=== PATIENT | female | born 1945 | race Caucasian/White ===

== ENCOUNTER 2019-09-25 21:06 | Emergency (ER) | payer OTHER ==
[2019-09-25 21:13] VITALS: BP 111/61; PULSE 54; TEMP 97.4; BMI 21.7
--- NOTE | 2019-09-25 21:20 | PDOC ---
History of Present Illness - General Chief Complaint: Lightheaded Stated Complaint: DIZZINESS Time Seen by Provider: 09/25/19 21:09 - History of Present Illness Initial Comments: 09/25/19 21:48 This 73-year-old woman with a history of asthma and osteoporosis brought in by ambulance with a few hour history of vertigo and nausea/vomiting. Patient states that she was washing her dishes when she had sudden onset of room spinning sensation. Symptom was worse with movement of her head. Denies headache She states that she was not able to keep her balance unless holding onto something; she subsequently had several episodes of nausea and vomiting (no blood/coffee grounds). She has no recent history of head trauma. She has not fallen since the onset of the vertigo. No recent fever/chills. She denies shortness of breath/cough. No other focal neurologic symptoms noted. She states that she had mild episodes of vertigo several years ago, attributed to "inner ear" problem. She was given some exercises to perform and symptoms resolved. Only other recent medical issue was asthma exacerbation earlier this month which improved significantly after course of corticosteroids. She currently does not have wheezing. Medications as noted below Non-smoker/no daily alcohol or recreational drug use No known allergies PMD: Dr Dominguez Past History - Past Medical History Allergies/Adverse Reactions: Allergies Allergy/AdvReac Type Severity Reaction Status Date / Time No Known Allergies Allergy Verified 08/24/11 13:54 Home Medications: Ambulatory Orders Benzalkonium Chloride [Tincture Merthiolate] 1 ml .ROUTE DAILY 07/19/13 Calcipotriene/Betamethasone [Taclonex Scalp Suspension] 60 gm TP DAILY 07/19/13 Calcium Carbonate/Vitamin D3 [Calcium 600-Vit D3 200 Tablet] 1 mg PO DAILY 07/19/13 Cholecalciferol (Vitamin D3) [Vitamin D] 1,000 unit PO DAILY 07/19/13 Docosahexanoic Acid/Epa [Fish Oil Softgel] 1 each PO DAILY 07/19/13 Ibandronate Sodium [Boniva (Monthly)] 150 mg PO Q30D 07/19/13 Multivitamin [Multivitamins] 1 each PO DAILY 07/19/13 Meclizine HCl [Antivert -] 25 mg PO TID PRN #12 tablet 09/25/19 Montelukast Na [Singulair -] 10 mg PO HS 09/25/19 Ondansetron [Zofran *Odt*] 4 mg SL BID PRN #6 od.tablet 09/25/19 Tiotropium Dandridge [Spiriva] 1 inh PO DAILY 09/25/19 predniSONE [Deltasone -] 10 mg PO DAILY 09/25/19 Anemia: No Asthma: Yes (occasional) Cancer: No Cardiac Disorders: Yes (mvp) CVA: No COPD: No CHF: No Dementia: No Diabetes: No GI Disorders: No Disorders: No HTN: No Hypercholesterolemia: No Liver Disease: No Seizures: No Thyroid Disease: No Other medical history: OSTEOPOROSIS - Surgical History Abdominal Surgery: No Appendectomy: No Cardiac Surgery: No Cholecystectomy: No Lung Surgery: No Neurologic Surgery: No Orthopedic Surgery: No - Psycho Social/Smoking Cessation Hx Smoking Status: No Smoking History: Never smoked Have you smoked in the past 12 months: No Number of Cigarettes Smoked Daily: 0 Hx Alcohol Use: No Drug/Substance Use Hx: No Substance Use Type: None Review of Systems - Review of Systems Able to Perform ROS?: Yes Comments:: 12 point review of systems is negative except for what is noted in the history of present illness *Physical Exam - Vital Signs Last Vital Signs Temp Pulse Resp BP Pulse Ox 97.4 F L 54 L 18 111/61 97 09/25/19 21:10 09/25/19 21:10 09/25/19 21:10 09/25/19 21:10 09/25/19 21:10 - Physical Exam GENERAL: Adult female, alert and oriented x3, keeping eyes closed (to prevent vertigo) mild distress secondary to vertigo/nausea HEAD: Normal with no signs of trauma. EYES: pupils 2 mm equal and reactive, rightward nystagmus espec on R lateral gaze, sclera anicteric, conjunctiva clear. ENT: Ears normal, nares patent, oropharynx clear without exudates. Dry mucous membranes. NECK: Normal range of motion, supple without lymphadenopathy, JVD, or masses. No bruits/no masses LUNGS: Breath sounds equal, clear to auscultation bilaterally. No wheezes, and no crackles. HEART:Regular rate and rhythm, normal S1 and S2 without murmur, rub or gallop. ABDOMEN:.normal bowel sounds No guarding,tenderness or rebound.No masses No distention. EXTREMITIES: Normal range of motion, no edema. No clubbing or cyanosis. No cici thema, or tenderness. NEUROLOGICAL: Cranial nerves II through XII grossly intact.R nystagmus as above. Normal speech.Moving all extremities equally. ED Treatment Course - LABORATORY CBC & Chemistry Diagram: 09/25/19 21:36 09/25/19 21:23 Medical Decision Making - Medical Decision Making IV access was obtained and CBC/chemistry profile/troponin levels were sent. 1 L of normal saline IV started Twelve-lead electrocardiogram was obtained and preliminary interpretation by me: Sinus bradycardia 55/minute; axis, intervals and waveforms were normal without evidence of acute ST or T wave abnormalities. No evidence of acute cardiac arrhythmia noted. No previous tracing was available for comparison. Patient was given Zofran 4 mg IV Noncontrast head CT was obtained: Interpretation by Dr. Cisneros of radiology staffsome evidence of mild sphenoidal sinusitis but no acute intracranial abnormality seen. Physical exam most consistent with peripheral vertigo in light of the unidirectional nystagmus and lack of vertical skew. Also, patient reported significant increase in her vertigo with rotational movement of her head. Patient reported significant relief in her nausea and mild relief in her vertigo after Zofran 4 mg IV and approximately 500 mL of normal saline IV Laboratory evaluation notable for potassium level 2.9 (unclear etiology since patient is on no medication which could cause hypokalemia and states that she has never had low potassium levels in the past); there was also some evidence of mild prerenal azotemia (BUN 19 with creatinine of 0.6). Patient received 10 meQ of KCl IV and 25 mg meclizine by mouth Additional KCl (K. Dur) 20 meq given orally. Patient reported marked resolution in her vertigo after meclizine and remainder of the liter of normal saline IV Patient asked for COVID-19 testing. Although the patient did not have typical s ymptoms of COVID-19 infection, viral origin of her symptoms are possibility. Since patient states that some of her family members have been visiting her in her home (including a daughter who is in the third trimester ), her infectious status would be valuable information. Therefore, swab was taken from the right nostril. It was recommended to the patient that she maintain strict self quarantine until the test results are known. Then, of course if she is positive for COVID-19, additional 7 days of self quarantine would be necessary. The patient understands and agrees. Meanwhile, patient should rest and drink plenty of water. Prescription for meclizine 25 mg up to 3 times a day for vertigo and Zofran ODT 4 mg up to twice a day as needed for nausea sent to her pharmacy. She should call her PMD, Dr. Dominguez on September 26 to discuss today's ER visit and to arrange for follow-up. If she has any recurrent persistent vertigo or vomiting, she should return to the ER. Discharge - Discharge Information Problems reviewed: Yes Clinical Impression/Diagnosis: Peripheral positional vertigo Qualifiers: Laterality: unspecified laterality Qualified Code(s): H81.399 - Other peripheral vertigo, unspecified ear Condition: Stable Disposition: HOME - Additional Discharge Information Prescriptions: Meclizine HCl [Antivert -] 25 mg PO TID PRN #12 tablet PRN Reason: Vertigo Ondansetron [Zofran *Odt*] 4 mg SL BID PRN #6 od.tablet PRN Reason: Nausea - Follow up/Referral Referrals: Matthew Dominguez MD [Staff Physician] - 2 Days - Patient Discharge Instructions Patient Printed Discharge Instructions: Benign Paroxysmal Positional Vertigo, [facility]-Coronavirus Instructions, [facility] COVID-19 Isolation Protocol Additional Instructions: Rest; drink plenty water Meclizine 25 mg up to 3 times a day as needed for recurrent vertigo Zofran ODT 4 mg up to twice a day as needed for recurrent nausea/vomiting Call Dr. Dominguez on September 26 to discuss today's ER visit and to arrange follow-up Return to ER if you have severe vertigo or persistent vomiting Follow guidelines for isolation until results of COVID-19 testing known (and afterwards, if test is positive) - Post Discharge Activity
[2019-09-25] MEDS ORDERED: ONDANSETRON 4 MG/2 ML VIAL IVPUSH ONE (21:38)
[2019-09-25 21:40] LABS: BASO % 1.1 % (0-2.0); EOS % 0.9 % (0-4.5); HEMATOCRIT 40.6 % (32.4-45.2); HEMOGLOBIN 13.6 GM/dl (10.7-15.3); MCH 28.7 pg (25.7-33.7); MCHC 33.5 g/dl (32.0-36.0); MEAN CELL VOLUME 85.8 fl (80-96); MEAN PLT VOLUME 8.8 fl (7.5-11.1); MONO % 7.3 % (3.8-10.2); NEUT % 52.7 % (42.8-82.8); PLATELET COUNT 284 K/MM3 (134-434); RBC 4.73 M/mm3 (3.60-5.2); RDW 12.7 % (11.6-15.6); WHITE BLOOD COUNT 10.1 K/mm3 (4.0-10.8)
[2019-09-25] MEDS ORDERED: ONDANSETRON 4 MG/2 ML VIAL ONE (21:40)
[2019-09-25 21:54] LABS: ALBUMIN 3.6 g/dl (3.4-5.0); BILIRUBIN,TOTAL 0.4 mg/dl (0.2-1); CALCIUM 8.7 mg/dl (8.5-10); CREATININE 0.6 mg/dl (0.55-1.3); TOT PROT 6.3 g/dl (6.4-8.2)
[2019-09-25 22:02] LABS: POTASSIUM 2.9 mmol/L (3.5-5.1)
[2019-09-25 22:16] LABS: MAGNESIUM 2.3 mg/dL (1.8-2.4)
[2019-09-25] MEDS ORDERED: SODIUM CHLORIDE 1,000 ML IV STA (22:23)
[2019-09-25] MEDS ORDERED: KCL 10 MEQ IVPB 10 MEQ/100 ML INFUS.BAG IVPB ONE (22:49)
[2019-09-25] MEDS ORDERED: KCL 10 MEQ IVPB 10 MEQ/100 ML INFUS.BAG IVPB SCH (23:00)
[2019-09-25] MEDS ORDERED: MECLIZINE HCL 25 MG TABLET (FP) PO ONE (23:13)
[2019-09-25] MEDS ORDERED: MECLIZINE HCL 25 MG TABLET (FP) ONE (23:15)
[2019-09-25] MEDS ORDERED: POTASSIUM CHLORIDE TABS 10 MEQ TABLET.ER (FP) PO ONE (23:52)
[2019-09-25] MEDS ORDERED: POTASSIUM CHLORIDE TABS 20 MEQ TABLET.ER (FP) PO ONE (23:58)
[2019-09-26] MEDS ORDERED: MECLIZINE HCL 25 MG TABLET (FP) ONE (00:01)
[2019-09-26] MEDS ORDERED: ONDANSETRON *ODT* 4 MG TABLET ONE (00:02)
--- NOTE | 2019-09-27 17:49 | EKG ---
Test Reason : Blood Pressure : / mmHG Vent. Rate : 057 BPM Atrial Rate : 057 BPM P-R Int : 158 ms QRS Dur : 096 ms QT Int : 464 ms P-R-T Axes : 058 038 034 degrees QTc Int : 451 ms SINUS BRADYCARDIA POSSIBLE LATERAL INFARCT , AGE UNDETERMINED ABNORMAL ECG WHEN COMPARED WITH ECG OF 26-OCT-2016 13:57, NO SIGNIFICANT CHANGE WAS FOUND Confirmed by EVELYN MORIN MD ([id number]) on 09/27/2019 5:49:20 PM Referred By: ARTHUR SALAS Confirmed By:EVELYN MORIN MD
== END 2019-09-26 00:19 | disposition home or self-care (01) ==
LOC: FER 21:06
PROC: 3E0337Z Introduction of Electrolytic and Water Balance Substance into Peripheral Vein, Percutaneous Approach (ICD-10-PCS; principal; 2019-09-25)
PROC: 3E033GC Introduction of Other Therapeutic Substance into Peripheral Vein, Percutaneous Approach (ICD-10-PCS; principal; 2019-09-25)
DX: H81.399 Other peripheral vertigo, unspecified ear (principal)
CPT/HCPCS: 36415; 70450-TC; 80053; 82550; 82553; 83735; 84484; 85025; 93005; 96361; 96374; 99285-25; U0003

== ENCOUNTER 2022-06-14 11:20 | Emergency (ER) | payer OTHER ==
[2022-06-14 11:28] VITALS: BP 134/76; PULSE 97; RESP 18; TEMP 97.9; BMI 20.8
== END 2022-06-14 13:44 | disposition home or self-care (01) ==
LOC: FER 11:20
DX: R51.9 Headache, unspecified (principal)
CPT/HCPCS: 70450-TC; 72125-TC; 99285-25

== ENCOUNTER 2024-11-09 06:17 | Day surgery (SDC) | payer OTHER ==
[2024-11-08 09:25] VITALS: BMI 21.9
[2024-11-09 09:52] LABS: ABSOLUTE IMMATURE GRANULOCYTES 0.03 x10^3/uL (0.0-0.031); BASOPHILS # 0.05 x10^3/uL (0.01-0.08); EOSINOPHIL % 1.3 % (0.7-5.8); EOSINOPHILS # 0.09 x10^3/uL (0.04-0.36); HEMATOCRIT 43.9 % (34.1-44.9); HEMOGLOBIN 13.9 g/dL (11.2-15.7); MCHC 31.7 g/dl (32.2-35.5); MEAN CELL VOLUME 87.3 fl (79.4-94.8); MONOCYTE # 0.59 x10^3/uL (0.24-0.86); MONOCYTE % 8.8 % (4.7-12.5); PLATELET COUNT 229 x10^3/uL (182-369); RDW 12.5 % (12.4-16.6)
[2024-11-09 09:53] VITALS: RESP 18
[2024-11-09 09:56] LABS: INR 1.03 (0.83-1.09); PROTHROMBIN TIME (PATIENT) 11.2 SEC (9.7-13.0)
[2024-11-09 10:16] LABS: POTASSIUM 4.3 mmol/L (3.5-5.1)
[2024-11-09 10:18] LABS: ALBUMIN 3.6 g/dl (3.4-5.0); BLOOD UREA NITROGEN 14.2 mg/dL (7-18); CALCIUM 9.4 mg/dL (8.5-10.1)
[2024-11-09 10:21] LABS: CREATININE 0.6 mg/dL (0.55-1.3)
[2024-11-09 10:23] LABS: BILIRUBIN,TOTAL 0.5 mg/dL (0.2-1); TOT PROT 6.9 g/dl (6.4-8.2)
[2024-11-09 13:57] LABS: BODY FLUID MESOTHELIAL 9 %; BODY FLUID MONOCYTE 13 %
[2024-11-09 15:44] VITALS: BP 109/61; PULSE 79; TEMP 97.6
[2024-11-10 16:07] LABS: BODY FLUID ALBUMIN 3.3 g/dL (Not Estab.)
== END 2024-11-09 15:20 | disposition home or self-care (01) ==
LOC: JRADIR 06:17
PROVIDERS: ATTEND Internal Medicine Pulmonary Disease
PROC: 0W993ZZ Drainage of Right Pleural Cavity, Percutaneous Approach (ICD-10-PCS; principal; 2024-11-09)
DX: J90 Pleural effusion, not elsewhere classified (principal); J91.8 Pleural effusion in other conditions classified elsewhere
CPT/HCPCS: 32555; 36415; 71046-TC-FY; 76942; 80053; 82042; 82150; 82465; 82945; 83615; 83986; 84157; 84478; 85025; 85610; 87070; 87075; 87102; 87116; 87205; 87206; 87210; 88108; 88305-TC